=== PATIENT | male | born 1975 | race Hispanic/Latino ===

== ENCOUNTER 2022-03-26 02:46 | Emergency (ER) | payer OTHER ==
[2022-03-26] MEDS ORDERED: Ketorolac Tromethamine 30 MG/ML VIAL ONE ×2 (03:04→12:04)
[2022-03-26] MEDS ORDERED: Furosemide 20 MG/2 ML VIAL ONE (03:19)
[2022-03-26] MEDS ORDERED: Furosemide 40 MG/4 ML VIAL ONE (03:19)
[2022-03-26 04:19] LABS: #Basophils 0.1 thou/uL (0.0-0.2); #Eosinphils 0.2 thou/uL (0.0-0.7); #Lymphocytes 1.2 thou/uL (1.20-3.40); #Monocytes 0.6 thou/uL (0.11-0.59); #Neutrophils 7.9 thou/uL (1.40-6.50); %Basophils 0.8 % (0.0-1.0); %Eosinophils 2.4 % (0.0-10.0); %Lymphocytes 12.3 % (21.0-51.0); %Monocytes 6.3 % (0.0-10.0); %Neutrophils 78.2 % (42.0-75.0); Hemoglobin 10.5 g/dL (14.0-18.0); Mean Corpuscular HGB CONC 32.1 g/dL (32.0-36.0); Mean Corpuscular Hemoglobin 25.3 pg (27.0-31.0); Mean Corpuscular Volume 78.7 fl (78.0-98.0); Mean Platelet Volume 8.2 fL (7.4-10.4); Platelet Count 266 10x3/uL (130-400); RBC Distribution Width 14.8 % (11.5-14.5); Red Blood Cell (RBC) Count 4.14 mill/uL (4.70-6.10); White Blood Cell (WBC) Count 10.1 10x3/uL (4.8-10.8)
[2022-03-26 04:23] LABS: Bilirubin Negative (Negative); Blood, Urine Negative (Negative); Clarity Clear (Clear); Glucose, Urine (Dipstick) Negative (Negative); Ketone, Urine Negative (Negative); Leukocyte Negative (Negative); Nitrite Negative (Negative); Protein, Urine (Dipstick) Negative (Neg-Trace); pH, Urine 7.5 (5.0-9.0)
[2022-03-26 04:29] LABS: ALT (SGPT) 11 U/L (8-55); AST (SGOT) 12 U/L (5-34); Albumin 3.1 g/dL (3.5-5.0); Alkaline Phosphatase 79 U/L (40-110); Anion Gap 14 mmol/L (10-20); BUN (Urea Nitrogen) 17 mg/dL (8.9-20.6); Bilirubin, Total 0.3 mg/dL (0.2-1.2); Calc. Creatinine Clearance 0 mL/min (70-130); Calcium 8.6 mg/dL (7.8-10.44); Carbon Dioxide 22 mmol/L (22-29); Chloride 104 mmol/L (98-107); Estimated GFR 76; Globulin 3.7 g/dL (2.4-3.5); Glucose 125 mg/dL (70-105); Magnesium 1.8 mg/dL (1.6-2.6); Potassium 4.5 mmol/L (3.5-5.1); Protein, Total 6.8 g/dL (6.0-8.3); Sodium 135 mmol/L (136-145)
[2022-03-26 04:39] LABS: SARS-CoV-2 NAA Rapid Test Not Detected (NotDetected)
[2022-03-26] MEDS ORDERED: Sodium Chloride 0.9% 100 ML ONE (04:56)
[2022-03-26] MEDS ORDERED: Cefepime 2 GM VIAL ONE (04:56)
[2022-03-26] MEDS ORDERED: Vancomycin 1 GM VIAL ONE (05:47)
[2022-03-26] MEDS ORDERED: Sodium Chloride 0.9% 250 ML 250 ML ONE (05:47)
[2022-03-26] MEDS ORDERED: hydrALAZINE 20 MG/ML VIAL ONE (06:31)
[2022-03-26 07:44] LABS: Troponin I Less than 0.010 ng/mL (< 0.028)
[2022-03-26] MEDS ORDERED: Morphine 4 MG/ML VIAL ONE (08:33)
[2022-03-26] MEDS ORDERED: Ondansetron PF 4 MG/2 ML Vial ONE (08:33)
[2022-03-26] MEDS ORDERED: Lidocaine 2% Jelly 5 ML TUBE ONE (08:41)
[2022-03-26] MEDS ORDERED: diphenhydrAMINE 50 MG/ML VIAL ONE (08:41)
== END 2022-03-26 12:40 | disposition short-term general hospital (02) ==
LOC: NAV ERS 02:46
DX: N49.2 Inflammatory disorders of scrotum (principal); R07.89 Other chest pain; E66.9 Obesity, unspecified; I11.0 Hypertensive heart disease with heart failure; I50.9 Heart failure, unspecified; Z20.822 Contact with and (suspected) exposure to COVID-19; Z79.82 Long term (current) use of aspirin; Z79.899 Other long term (current) drug therapy
CPT/HCPCS: 36415; 71045; 80053; 81003; 83605; 83735; 83880; 84484; 85025; 86140; 87040; 96365; 96367; 96375; 96376; J0360; J0692; J1200; J1885; J1940; J2270; J2405; J3370; J3490; J7050; U0002

== ENCOUNTER 2023-01-07 17:10 | Emergency (ER) | payer OTHER ==
[2023-01-07 17:38] LABS: #Basophils 0.1 thou/uL (0.0-0.2); #Eosinphils 0.1 thou/uL (0.0-0.7); #Lymphocytes 0.6 thou/uL (1.20-3.40); #Monocytes 0.7 thou/uL (0.11-0.59); #Neutrophils 14.9 thou/uL (1.40-6.50); %Basophils 0.4 % (0.0-1.0); %Eosinophils 0.6 % (0.0-10.0); %Lymphocytes 3.6 % (21.0-51.0); %Monocytes 4.3 % (0.0-10.0); %Neutrophils 91.1 % (42.0-75.0); Hematocrit 41.8 % (42.0-52.0); Hemoglobin 12.8 g/dL (14.0-18.0); Mean Corpuscular HGB CONC 30.6 g/dL (32.0-36.0); Mean Corpuscular Hemoglobin 25.1 pg (27.0-31.0); Mean Corpuscular Volume 82.1 fl (78.0-98.0); Mean Platelet Volume 8.3 fL (7.4-10.4); Platelet Count 231 10x3/uL (130-400); RBC Distribution Width 14.4 % (11.5-14.5); Red Blood Cell (RBC) Count 5.09 mill/uL (4.70-6.10); White Blood Cell (WBC) Count 16.4 10x3/uL (4.8-10.8)
[2023-01-07 17:57] LABS: ALT (SGPT) 20 U/L (8-55); AST (SGOT) 19 U/L (5-34); Albumin 3.7 g/dL (3.5-5.0); Alkaline Phosphatase 87 U/L (40-110); Anion Gap 15 mmol/L (10-20); BUN (Urea Nitrogen) 21 mg/dL (8.9-20.6); Bilirubin, Total 0.5 mg/dL (0.2-1.2); Calc. Creatinine Clearance 0 mL/min (70-130); Calcium 8.9 mg/dL (7.8-10.44); Carbon Dioxide 22 mmol/L (22-29); Chloride 102 mmol/L (98-107); Estimated GFR 79; Globulin 3.5 g/dL (2.4-3.5); Glucose 111 mg/dL (70-105); Magnesium 1.5 mg/dL (1.6-2.6); Potassium 4.2 mmol/L (3.5-5.1); Protein, Total 7.2 g/dL (6.0-8.3); Sodium 135 mmol/L (136-145)
[2023-01-07 17:58] LABS: Troponin I 0.019 ng/mL (< 0.028)
[2023-01-07 18:08] LABS: Bilirubin Negative (Negative); Blood, Urine Negative (Negative); Clarity Clear (Clear); Glucose, Urine (Dipstick) 500 mg/dL (Negative); Ketone, Urine Negative (Negative); Leukocyte Negative (Negative); Nitrite Negative (Negative); Protein, Urine (Dipstick) Negative (Neg-Trace); Urobilinogen 0.2 mg/dL (Less than 2)
[2023-01-07 18:22] LABS: Squamous Epithelial 0-3 HPF (0-3)
[2023-01-07 18:36] LABS: SARS-CoV-2 NAA Rapid Test Not Detected (NotDetected)
[2023-01-07] MEDS ORDERED: Morphine 4 MG/ML VIAL ONE ×2 (19:04→23:09)
[2023-01-07] MEDS ORDERED: Sodium Chloride 0.9% 0 ML ONE (20:08)
[2023-01-07] MEDS ORDERED: Piperacillin/Tazobactam 4.5 GM VIAL ONE (20:08)
[2023-01-07] MEDS ORDERED: Furosemide 40 MG/4 ML VIAL ONE (20:08)
[2023-01-07] MEDS ORDERED: Sodium Chloride 0.9% 100 ML ONE (20:10)
[2023-01-07 21:12] LABS: Troponin I 0.012 ng/mL (< 0.028)
[2023-01-07] MEDS ORDERED: Vancomycin 1 GM VIAL ONE (21:14)
[2023-01-07] MEDS ORDERED: Sodium Chloride 0.9% 500 ML ONE (21:14)
[2023-01-07] MEDS ORDERED: Ondansetron PF 4 MG/2 ML Vial ONE (23:09)
[2023-01-07] MEDS ORDERED: Ondansetron ODT 4 MG TAB ONE (23:09)
== END 2023-01-07 23:45 | disposition short-term general hospital (02) ==
LOC: NAV ERS 17:10
DX: N49.2 Inflammatory disorders of scrotum (principal); I11.0 Hypertensive heart disease with heart failure; I50.9 Heart failure, unspecified; E11.9 Type 2 diabetes mellitus without complications; E66.9 Obesity, unspecified; Z20.822 Contact with and (suspected) exposure to COVID-19; Z86.73 Personal history of transient ischemic attack (TIA), and cerebral infarction without residual deficits; Z79.82 Long term (current) use of aspirin; Z79.84 Long term (current) use of oral hypoglycemic drugs; Z79.899 Other long term (current) drug therapy
CPT/HCPCS: 71045; 80053; 81001; 83735; 83880; 84484; 85025; 87040; 93005; 94760; 96365; 96366; 96367; 96375; 96376; J1940; J2270; J2405; J2543; J3370; J3490; J7030; Q0162